=== PATIENT | female | born 1995 | race African-American/Black ===

== ENCOUNTER 2017-04-04 06:38 | Emergency (ER) | payer OTHER ==
[~2017-04-04] VITALS: Ht 175.3 cm; Wt 77.1 kg
[~2017-04-04 06:38] MED LIST: NKM; ZANTAC150 MG ORAL; ZOFRAN ODT4 MG ORAL
--- NOTE | 2017-04-04 06:57 | Emergency Room Report ---
History of Present Illness General Chief Complaint: Chest Pain Source: Patient Present Illness HPI 21-year-old female with no sig pmhx, p/w chest pain for 3 hours. 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 Localized to substernal area, no radiation to back or other areas, sharp in nature, that lasted for 3 hours. occurred on exertion after lifting something. Denies SOB. States that touching it worsens the pain. Denies palpitations, diaphoresis, n/v. This is the first occurrence of chest pain. Denies fever, chills, cough, abd pain, recent viral illness. Denies trauma. Denies cardiac history, smoking, or family history of cardiac disease at a young age. Patient states that she takes OCPs. Denies history of PE/DVT, no recent surgeries, prolonged immobilzation, malignancy Allergies: Coded Allergies: No Known Allergies (Unverified , 10/15/12) Patient History Past Medical History: see triage record Past Surgical History: none Pertinent Family History: none Last Menstrual Period: two weeks ago Now: No : 0 Reviewed Nursing Documentation: PMH: Agreed, PSxH: Agreed Nursing Documentation-PMH Past Medical History: No Stated History Review of Systems All Other Systems: negative except mentioned in HPI Physical Exam Vital Signs Date Time Temp Pulse Resp B/P (MAP) Pulse Ox O2 Delivery O2 Flow Rate FiO2 04/04/17 06:40 98.1 98 18 156/91 98 Room Air Sp02 EP Interpretation: reviewed, normal General Appearance: alert, GCS 15, non-toxic, moderate distress, other - Tearful and very anxious, however not short of breath and speaking in complete sentences Head: normocephalic, atraumatic Eyes: bilateral eye normal inspection, bilateral eye PERRL, bilateral eye EOMI ENT: normal ENT inspection, normal pharynx, normal voice, moist mucus membranes Neck: normal inspection, full range of motion, supple Respiratory: normal inspection, lungs clear, normal breath sounds, no respiratory distress, no retraction, no wheezing, speaking full sentences, chest symmetrical Cardiovascular #1: regular rate, rhythm, no edema, normal capillary refill, other - Chest wall tenderness bilaterally Cardiovascular #2: 2+ radial (R), 2+ radial (L) Gastrointestinal: normal inspection, non tender, soft, non-distended, no guarding Musculoskeletal: normal inspection, back normal, normal range of motion, non- tender, no calf tenderness, other Neurologic: normal inspection, alert, oriented x3, responsive, motor strength/ tone normal, sensory intact, normal gait, speech normal Psychiatric: normal inspection, judgement/insight normal, memory normal Skin: normal inspection, normal color, no rash, warm/dry, well hydrated, normal turgor Medical Decision Making Diagnostic Impression: Primary Impression: Costochondritis Additional Impression: Chest pain ER Course 21-year-old female with no sig pmhx p/w chest pain Plan: musculoskeletal CP/costochondritis vs. pneumothorax vs. gastritis/GERD PE less likely given history and physical examination, not hypoxic/tachycardic, PERC negative. ACS less likely given age/history Plan: NSAIDs, EKG, CXR Anticipate DC home as patient appears clinically well. ER course: Patient was treated NSAIDs with improvement of pain. Patient remains well appearing in ED. Disposition: Patient will be discharged to home with a prescription of motrin. Strict precautions discussed with patient on when to emergently return to the ED : this includes worsening/severe chest pain, palpitations, shortness of breath, syncopal episodes, fever or chills, which may indicate severe illness. Patient verbalized understanding. Patient instructed to follow up with their PMD within the next 2 days. Patient agrees with plan. Please note that this Emergency Department Report was dictated using [employer] system engineer technology software, occasionally this can lead to erroneous entry secondary to interpretation by the dictation equipment. EKG Diagnostic Results EP Interpretation: Yes Rate: normal Rhythm: NSR ST Segments: No acute changes, no Brugada, WPW ASA given to patient: No Rhythm Strip EP Interpretation: Yes Rate: 90 Rhythm: NSR, no PVCs, no ectopy Chest X-ray CXR: Ordered: Yes 1 view Indication: Chest pain EP interpretation: Yes Interpretation: No consolidation, no effusion, no PTX, no acute cardiopulmonary disease Impression: No acute disease Electronically signed by Veronica Brady MD Last Vital Signs Date Time Temp Pulse Resp B/P (MAP) Pulse Ox O2 Delivery O2 Flow Rate FiO2 04/04/17 06:40 98.1 98 18 156/91 98 Room Air Disposition: HOME, SELF-CARE Condition: Improved Veronica Brady M.D. Apr 04, 2017 06:57
[2017-04-04 07:19] VITALS: BP 148/86
[2017-04-04 08:04] VITALS: BP 134/85
--- NOTE | 2017-04-04 11:47 | Diagnostic Imaging Report ---
Indication: Chest pain Technique: One view of the chest Comparison: none Findings: Lungs and pleural spaces are clear. Heart size is normal. Impression: No acute process
--- NOTE | 2017-04-04 14:58 | Cardiology Report ---
APPROVED REPORT EKG Measurement Heart [id number] Normal sinus rhythm Normal ECG
== END 2017-04-04 08:08 | disposition home or self-care (01) ==
LOC: EMR 07:22
DX: R07.9 Chest pain, unspecified (principal); M94.0 Chondrocostal junction syndrome [Tietze]
CPT/HCPCS: 71010; 93005; 99283

== ENCOUNTER 2018-04-08 23:40 | Emergency (ER) | payer MEDICAID, OTHER ==
[~2018-04-08] VITALS: Ht 177.8 cm; Wt 83.9 kg
[2018-04-09 00:09] LABS: BILIRUBIN, URINE NEGATIVE (NEGATIVE); GLUCOSE, URINE (UA) NEGATIVE (NEGATIVE); KETONES,URINE NEGATIVE (NEGATIVE); LEUKOCYTE ESTERASE ,URINE NEGATIVE (NEGATIVE); NITRITE,URINE NEGATIVE (NEGATIVE); PH,URINE 6 (4.5-8.0); PROTEIN,URINE NEGATIVE (NEGATIVE); UROBILINOGEN,URINE 1 MG/DL (0.0-1.0)
[2018-04-09] MEDS ORDERED: GI Cocktail 50ml ORAL ONE (00:15)
[2018-04-09 00:20] LABS: APPEARANCE,URINE CLEAR; COLOR,URINE YELLOW
[2018-04-09] MEDS ORDERED: Lidocaine 2% Visc 15ml soln ONE (00:33)
[2018-04-09] MEDS ORDERED: Dicyclomine HCl 10mg/5ml oral soln ONE (00:33)
[2018-04-09 00:35] LABS: EOSINOPHILS % (AUTO) 2.9 % (0.0-3.0); HEMATOCRIT 36.3 % (37.0-47.0); LYMPHOCYTES % (AUTO) 32.2 % (20.0-45.0); MEAN CORPUSCULAR VOLUME 83 FL (80-99); MONOCYTES % (AUTO) 10.6 % (1.0-10.0); NEUTROPHILS % (AUTO) 53.4 % (45.0-75.0); PLATELET COUNT 243 K/UL (150-450); RED BLOOD COUNT 4.39 M/UL (4.20-5.40); RED CELL DISTRIBUTION WIDTH 11.9 % (11.6-14.8); WHITE BLOOD COUNT 6.8 K/UL (4.8-10.8)
[2018-04-09 00:44] LABS: ANION GAP 7 mmol/L (5-15); BLOOD UREA NITROGEN 12 mg/dL (7-18); CALCIUM 9.3 MG/DL (8.5-10.1); CARBON DIOXIDE 28 MMOL/L (21-32); CHLORIDE 105 MMOL/L (98-107); CREATININE 0.8 MG/DL (0.55-1.30); POTASSIUM 4.3 MMOL/L (3.5-5.1); SODIUM 140 MMOL/L (136-145)
[2018-04-09 00:49] LABS: ALANINE AMINOTRANSFERASE 143 U/L (12-78); ALBUMIN 3.6 G/DL (3.4-5.0); ALBUMIN/GLOBULIN RATIO 0.9 (1.0-2.7); ALKALINE PHOSPHATASE 83 U/L (46-116); ASPARTATE AMINO TRANSFERASE 50 U/L (15-37); BILIRUBIN,TOTAL 0.2 MG/DL (0.2-1.0)
[2018-04-09 00:58] VITALS: BP 135/81
--- NOTE | 2018-04-09 00:58 | Emergency Room Report ---
History of Present Illness General Chief Complaint: Abdominal Pain Source: Patient Present Illness HPI Patient is a 22-year-old female presented after increased left lower abdominal pain. Patient reports having intermittent episodes of the sharp of sided pain. The patient denies any fever or vomiting. She reports having had acute onset of symptoms. Pain was unchanged with ambulation.She denies any vomiting or diarrhea. She denies any black or bloody stools. She reports having normal urination. She denies any vaginal discharge. She is unsure she's . Allergies: Coded Allergies: No Known Allergies (Unverified , 10/15/12) Patient History Past Medical History: see triage record Last Menstrual Period: 03/29/2018 Reviewed Nursing Documentation: PMH: Agreed; PSxH: Agreed Nursing Documentation-PMH Past Medical History: No Stated History Review of Systems All Other Systems: negative except mentioned in HPI Physical Exam Vital Signs Date Time Temp Pulse Resp B/P (MAP) Pulse Ox O2 Delivery O2 Flow Rate FiO2 04/08/18 23:43 98.2 74 16 124/82 100 Room Air Sp02 EP Interpretation: reviewed, normal General Appearance: normal inspection, well appearing, no apparent distress, alert, GCS 15 Head: atraumatic ENT: normal ENT inspection, hearing grossly normal, normal voice Neck: normal inspection, full range of motion, supple, no bony tend Respiratory: normal inspection, lungs clear, normal breath sounds, no respiratory distress, no retraction, no wheezing Cardiovascular #1: regular rate, rhythm, no edema Gastrointestinal: normal inspection, normal bowel sounds, non tender, soft, no guarding, no hernia Genitourinary: no CVA tenderness Musculoskeletal: normal inspection, back normal, normal range of motion Neurologic: normal inspection, alert, oriented x3, responsive, automotive alignment specialist III-XII nml as tested, speech normal Psychiatric: normal inspection, judgement/insight normal, mood/affect normal Skin: normal inspection, normal color, no rash Medical Decision Making Diagnostic Impression: Primary Impression: Abdominal pain Qualified Codes: R10.13 - Epigastric pain ER Course Patient presented for abdominal pain. Differential diagnoses included ischemic bowel, appendicitis, perforated viscus, abdominal aortic aneurysm, inferior myocardial infarction, viral gastroenteritisBecause of complexity of patient's case laboratory testing and imaging studies were ordered. Laboratory studies are unremarkable. The pelvic ultrasound showed bilateral ovarian cysts without evident free fluid or ovarian torsion. The patient is given Toradol for pain. The patient is advised follow-up with primary care physician for reexamination and treatment.The patient is advised to follow up with primary care doctor in 1-2 days. Patient is advised to return if any worsening condition or if any changes in status that are concerning. This report is dictated with [employer] auditor supervisor software which may occasionally lead to discrepancies related to use of this software. Labs Test 04/08/18 23:45 04/09/18 00:23 Urine Color Yellow Urine Appearance Clear Urine pH 6 (4.5-8.0) Urine Specific [place] 1.025 (1.005-1.035) Urine Protein Negative (NEGATIVE) Urine Glucose (UA) Negative (NEGATIVE) Urine Ketones Negative (NEGATIVE) Urine Blood 1+ (NEGATIVE) Urine Nitrite Negative (NEGATIVE) Urine Bilirubin Negative (NEGATIVE) Urine Urobilinogen 1 MG/DL (0.0-1.0) Urine Leukocyte Esterase Negative (NEGATIVE) Urine RBC 0-2 /HPF (0 - 2) Urine WBC 0 /HPF (0 - 2) Urine Squamous Epithelial Cells Few /LPF (NONE/OCC) Urine Bacteria None /HPF (NONE) Urine HCG, Qualitative Negative (NEGATIVE) White Blood Count 6.8 K/UL (4.8-10.8) Red Blood Count 4.39 M/UL (4.20-5.40) Hemoglobin 12.0 G/DL (12.0-16.0) Hematocrit 36.3 % (37.0-47.0) Mean Corpuscular Volume 83 FL (80-99) Mean Corpuscular Hemoglobin 27.3 PG (27.0-31.0) Mean Corpuscular Hemoglobin Concent 33.0 G/DL (32.0-36.0) Red Cell Distribution Width 11.9 % (11.6-14.8) Platelet Count 243 K/UL (150-450) Mean Platelet Volume 8.1 FL (6.5-10.1) Neutrophils (%) (Auto) 53.4 % (45.0-75.0) Lymphocytes (%) (Auto) 32.2 % (20.0-45.0) Monocytes (%) (Auto) 10.6 % (1.0-10.0) Eosinophils (%) (Auto) 2.9 % (0.0-3.0) Basophils (%) (Auto) 1.0 % (0.0-2.0) Sodium Level 140 MMOL/L (136-145) Potassium Level 4.3 MMOL/L (3.5-5.1) Chloride Level 105 MMOL/L (98-107) Carbon Dioxide Level 28 MMOL/L (21-32) Anion Gap 7 mmol/L (5-15) Blood Urea Nitrogen 12 mg/dL (7-18) Creatinine 0.8 MG/DL (0.55-1.30) Estimat Glomerular Filtration Rate > 60 mL/min (>60) Glucose Level 113 MG/DL (74-106) Calcium Level 9.3 MG/DL (8.5-10.1) Total Bilirubin 0.2 MG/DL (0.2-1.0) Aspartate Amino Transf (AST/SGOT) 50 U/L (15-37) Alanine Aminotransferase (ALT/SGPT) 143 U/L (12-78) Alkaline Phosphatase 83 U/L (46-116) Total Protein 7.5 G/DL (6.4-8.2) Albumin 3.6 G/DL (3.4-5.0) Globulin 3.9 g/dL Albumin/Globulin Ratio 0.9 (1.0-2.7) Lipase 144 U/L (73-393) Last Vital Signs Date Time Temp Pulse Resp B/P (MAP) Pulse Ox O2 Delivery O2 Flow Rate FiO2 04/09/18 00:00 74 16 Room Air 04/08/18 23:43 98.2 124/82 100 Status: improved Disposition: HOME, SELF-CARE Condition: Stable Scripts Famotidine (PEPCID AC) 20 Mg Tablet 20 MG PO DAILY, #20 TAB Prov: Kishan Varner MD 04/09/18 Dicyclomine Hcl* (DICYCLOMINE HCL*) 10 Mg Capsule 10 MG PO QID, #30 CAP Prov: Kishan Varner MD 04/09/18 Referrals: NON PHYSICIAN (PCP) Kishan Varner MD Apr 09, 2018 00:58
[2018-04-09] MEDS ORDERED: DICYCLOMINE HCL10 MG PO (01:49)
[2018-04-09] MEDS ORDERED: PEPCID AC20 M2 PO (01:50)
[2018-04-09 01:59] VITALS: BP 123/69
--- NOTE | 2018-04-09 12:08 | Diagnostic Imaging Report ---
Indication:Lower abdominal and pelvic pain Technique: Grayscale and duplex Doppler imaging of the pelvis performed utilizing a transabdominal and endovaginal scan. Comparison: None Findings: The size, contour, and configuration of the uterus is within normal limits. The endometrium is uniformly echogenic and normal in thickness. Endometrium measures approximately 7 mm. Uterus is 7.5 x 4 x 3.2 cm The ovaries appear normal bilaterally with good dopplerable blood flow. There is no significant free fluid identified. Right ovary is 2.3 x 2 x 2.3 cm. Left ovary 2.4 x 2.2 x 2 cm. There is a 1.6 cm dominant cyst in the right ovary. IMPRESSION: Negative pelvic ultrasound. No acute findings. Right ovarian cyst.
== END 2018-04-09 02:11 | disposition home or self-care (01) ==
LOC: EMR 23:59
DX: R10.32 Left lower quadrant pain (principal)
CPT/HCPCS: 36415; 76830; 76856; 80053; 81003; 81025; 83690; 85025; 96374; 99284; J2405